=== PATIENT | female | born 1960 | race Caucasian/White ===

== ENCOUNTER 2020-10-25 13:15 | Emergency (ER) | payer OTHER, SELFPAY ==
[2020-10-25 13:26] VITALS: BP 131/87; PULSE 76; RESP 18; O2SAT 96; BMI 30.1
--- NOTE | 2020-10-25 14:13 | CT_ITS ---
WS: [id number] CT ABDOMEN AND PELVIS WITH CONTRAST HISTORY: per request of PCP, recent bariatric surgery TECHNIQUE: Imaging performed of the abdomen and pelvis with IV contrast. Single phase imaging of the abdomen. Coronal and sagittal reformats are submitted. All CT scans at [facility] use at [address] one of these dose optimization techniques: automated exposure control; mA and/or kV adjustment per patient size (includes targeted exams where dose is matched to clinical indication); or iterative re construction. IV CONTRAST: Omnipaque 300; 95 mL IV. Oral contrast: No DLP: 1486.94 mGy.cm COMPARISON: None available. Lower thorax: Lung bases are clear. Heart is normal size. No hiatal hernia. Liver/biliary system: Normal size liver. There is mild bile duct dilatation which is probably physiol ogic. Common bile duct at pancreatic head is normal. Lobulated low-attenuation mass in the anterior l iver measures 3.0 x 1.3 cm and probably represents a cluster of cysts. This is an additional low atte nuation along the posterior diaphragmatic surface. Portal vein is patent and normal. Gallbladder: Status post cholecystectomy. Pancreas: Atrophied pancreas. Spleen: Normal size spleen. No mass or infarct. Adrenal glands: Normal. Right kidney: Normal. Left kidney: Normal. Aorta: Mild atherosclerosis with no aneurysm. Lymphadenopathy: None. Free fluid: None. GI tract: Postsurgical changes from gastric sleeve are evident. There is some very mild mucosal thick ening involving the proximal small bowel. No obstruction or ascites. There is an additional single sanchez rgical clip very close to the proximal duodenum where there is also wall thickening. Abdominal wall: Unremarkable abdominal wall. No hernia. Pelvis: No free fluid or adenopathy within the pelvis. Bones: Degenerative disc disease at L5-S1. CT/CT abdomen pelvis w con* [id number] IMPRESSION: 1. Postsurgical changes within the stomach probably related to gastric sleeve. There is adjacent wall thickening involving the stomach and proximal duodenum. Most significant wall thickening in the duodenum. No free fluid or free air is identified. 2. No ascites. 3. Prior cholecystectomy. 4. Hepatic cysts and mild bile duct dilatation which may be physiologic.
[2020-10-25 14:19] VITALS: BP 146/87; PULSE 70; RESP 18; O2SAT 98
--- NOTE | 2020-10-25 14:23 | ED_ITS ---
HPI - General Adult General: Chief complaint: Abdominal Pain Stated complaint: UPPER ABDOMINAL PAIN Time Seen by Provider: 10/25/20 13:45 History of Present Illness: HPI narrative: Patient is a 60-year-old female with a history of recent bariatric gastric bypass presents the emergency room for evaluation of upper abdominal pain. Patient says that the last 2 weeks she has had dull midepigastric pain. Pain is not worse with p.o. intake. Patient went to see her primary care provider was told to go to the emergency room for evaluation of of persistent pain and specifically for a CT evaluation. Patient had her bariatric surgery in [place]. Since then, patient has not denied any fever/chills, problem with p.o. intake, nausea/vomiting, or other complaints. Patient denies any complaints at this time. Patient reports intermittent liquid stool since her surgery. Denies n/v/f/c/cp/sob/melena or hematocheiza. Onset:2 weeks ago Duration:2 weeks Location:home Severity:moderate Review of Systems Narrative: Constitutional: No fever, no chills. HEENT: No vision changes CV: No chest pain, no palpitations PULM: no cough, no dyspnea. GI: +upper abdominal pain, -N/-V/+D. : No dysuria MSKEL: No muscle pain SKIN: No new rashes, no lesions. NEURO: No headache, no focal weakness. HEME: No visible bruises PSYCH: Normal mood [facility] Female Reproductive History: Date of last menstrual period: 05/17/20 Physical Exam Narrative: EXAM NARRATIVE: Head: Atraumatic Eyes: PERRL, conjunctiva without injection ENT: Mucous membrane moist NECK: Supple, ROM intact LUNGS: LCTAB, no crackles/rhonchi CV: RRR ABDOMEN: Soft, + midepigastric abdominal tenderness to palpation, NO guarding rebound, guarding, rigidity. No CVA tenderness to percussion. Neg Ornelas/Neg McBurney's point tenderness, no suprabupic tenderness to palpation. EXTREMITY: Normal ROM SKIN: No rash or erythema NEURO: Awake and alert, no focal motor deficits PSYCH: Normal mood and affect Course Vital Signs: Vital signs: Vital Signs Pulse Rate 63 10/25/20 16:18 Respiratory Rate 18 10/25/20 15:10 Blood Pressure 127/100 10/25/20 16:18 Pulse Oximetry 100 10/25/20 16:18 MDM - General Adult MDM Narrative: Medical decision making narrative: 60-year-old female who presents the emergency room for evaluation of midepigastric jakub pain s/p bariatric surgery 4 weeks ago. On exam, patient is hemodynamically stable with mild tenderness palpation in the midepigastric area. No guarding or rebound tenderness We will obtain basic blood work and CT evaluation per request of PCP. Lab workup wnl. afebrile emergency room. CT showed mild duodenal thickening consistent with postoperative changes. I have discussed the findings with patient and printed her out a copy of the report for her to share with her PCP. Given onset symptoms x 2 weeks, no leukocytosis, and minimal pain -- patient most likely does not have anything surgical or infectious at this time. It is unclear why patient has midepigastic pain. No suspicion for ACS. Patient received a GI cocktail with symptomatic improvements. No suspicion for pancreatitis or biliary pathologies at this time. UA showed many bacteria but patient has no urinary symptoms, will not treat as UTI. Rx: Pepcid and maalox PRN abdominal pain. Disposition: Discharge. Patient is given follow-up with primary care provider for further evaluation of her symptoms. Patient is given precautions for any worsening pain, fever/chills, nausea/vomiting, worsening pain, or any new concerning complaints. Lab Data: Labs: Lab Results 10/25/20 10/25/20 10/25/20 Range/Units 14:15 14:15 14:25 WBC 9.2 (4.0-10.0) 10^3/ uL RBC 5.52 H (4.1-5.3) 10^6/u L Hgb 14.6 (11.5-15.3) g/dL Hct 46.2 (37.0-47.0) % MCV 83.7 (81-99) fl MCH 26.4 L (28.0-34.0) pg MCHC 31.6 (30.0-36.0) g/dL RDW 13.3 (12.1-15.1) % Plt Count 253 (130-400) 10^3/c mm MPV 10.7 H (7.4-10.4) fL Neut % (Auto) 68.5 % Lymph % (Auto) 20.5 % [place] % (Auto) 6.4 % Eos % (Auto) 3.6 % Baso % (Auto) 0.7 % Neut # (Auto) 6.26 (1.8-7.7) 10^3/u L Lymph # (Auto) 1.9 (0.8-4.8) 10^3/u L [place] # (Auto) 0.6 (0.2-0.9) 10^3/u L Eos # (Auto) 0.3 (0.0-0.8) 10^3/u L Baso # (Auto) 0.1 (0.0-0.1) 10^3/u L Nucleated RBC % (a uto) 0 % Nucleated RBCs # 0.0 /100WBC Sodium 144 (136-145) mmol/L Potassium 3.9 (3.5-5.1) mmol/L Chloride 105 (98-107) mmol/L Carbon Dioxide 29 (22-29) mmol/L Anion Gap 13.9 (5-19) BUN 8 (8-23) mg/dL Creatinine 0.4 L (0.5-0.9) mg/dL GFR Calculation 162.8 H (90-130) mL/min Glucose 94 (65-115) mg/dL Calculated Osmolal ity 296 H (285-295) mOsm/k g Calcium 9.1 (8.5-10.5) mg/dL Total Bilirubin 0.6 (0.15-1.2) mg/dL AST 20 (0-32) U/L ALT 16 (0-33) U/L Alkaline Phosphata se 82 (35-105) IU/L Total Protein 6.6 (6.6-8.7) g/dL Albumin 4.0 (3.5-5.2) g/dL Globulin 2.6 (1.3-4.6) g/dL Lipase 19 (13-60) U/L Urine Color Naila (Yellow) Urine Appearance Hazy A (CLEAR) Urine pH 5 (5-7) Ur Specific Gravit y 1.025 (1.005-1.030) Urine Protein Trace (Negative) Urine Glucose (UA) Norm (Normal) Urine Ketones 1+ H (Negative) Urine Blood Neg (Negative) Urine Nitrate Negative (Negative) Urine Bilirubin 1+ H (Negative) Urine Urobilinogen 1 H (Negative) mg/dL Ur Leukocyte Shahida ase Trace H (Negative) Urine RBC Not Reportable Urine WBC 5-10 H (0-5) /hpf Ur Squamous Epith Cells 5-10 H (0-5) /hpf Amorphous Sediment Not Reportable Urine Bacteria 3+ H (NONE) /hpf Urine Mucus 1+ /hpf Imaging Data^: Other Imaging: Radiologist's impression: [facility] [place], [place] [address]KC Scan ReportSigned Patient: Glo Yeh #: [id number]: 1Acct#:[id number]/Sex: 60 / FADM Date: 10/25/20Loc: ERRoom/Bed:Attending Dr: Ordering Provider/Ordering MD: Prem Aparicio MD Date of Service: 10/25/20 Procedure(s): CT abdomen pelvis w con* [id number] Accession Number(s): [id number] Report Number: [id number] WS: [id number] CT ABDOMEN AND PELVIS WITH CONTRAST HISTORY: per request of PCP, recent bariatric surgery TECHNIQUE: Imaging performed of the abdomen and pelvis with IV contrast. Single phase imaging of the abdomen. Coronal and sagittal reformats are submitted. All CT scans at [facility] use at least one of these dose optimization techniques: automated exposure control; mA and/or kV adjustment per patient size (includes targeted exams where dose is matched to clinical indication); or iterative reconstruction. IV CONTRAST: Omnipaque 300; 95 mL IV. Oral contrast: No DLP: 1486.94 mGy.cm COMPARISON: None available. Lower thorax: Lung bases are clear. Heart is normal size. No hiatal hernia. Liver/biliary system: Normal size liver. There is mild bile duct dilatation which is probably physiologic. Common bile duct at pancreatic head is normal. Lobulated low-attenuation mass in the anterior liver measures 3.0 x 1.3 cm and probably represents a cluster of cysts. This is an additional low attenuation along the posterior diaphragmatic surface. Portal vein is patent and normal. Gallbladder: Status post cholecystectomy. Pancreas: Atrophied pancreas. Spleen: Normal size spleen. No mass or infarct. Adrenal glands: Normal. Right kidney: Normal. Left kidney: Normal. Aorta: Mild atherosclerosis with no aneurysm. Lymphadenopathy: None. Free fluid: None. GI tract: Postsurgical changes from gastric sleeve are evident. There is some very mild mucosal thickening involving the proximal small bowel. No obstruction or ascites. There is an additional single surgical clip very close to the proximal duodenum where there is also wall thickening. Abdominal wall: Unremarkable abdominal wall. No hernia. Pelvis: No free fluid or adenopathy within the pelvis. Bones: Degenerative disc disease at L5-S1. CT/CT abdomen pelvis w con* [id number] IMPRESSION: 1. Postsurgical changes within the stomach probably related to gastric sleeve. There is adjacent wall thickening involving the stomach and proximal duodenum. Most significant wall thickening in the duodenum. No free fluid or free air is identified. 2. No ascites. 3. Prior cholecystectomy. 4. Hepatic cysts and mild bile duct dilatation which may be physiologic. Dictated By:Carlie Moctezuma DOSigned By:aCrlie Moctezuma DOSigned Date/Time:10/25/20 1527DD/ 20 Discharge Plan Discharge Patient Disposition: Home Clinical Impression: Abdominal pain Condition: Stable Prescriptions: New Pepcid 20 mg tablet 20 mg PO BID PRN (Reason: pain) 42 Days Qty: 84 RF: 0 Maalox Advanced 1,000-60 mg tablet,chewable 1 tab PO BID PRN (Reason: pain) 10 Days Qty: 20 RF: 0 No Action Tylenol Extra Strength 500 mg Tablet 500 mg PO Q4H PRN (Reason: Pain) RF: 0 hydrochlorothiazide 12.5 mg capsule 12.5 mg PO DAILY PRN (Reason: Edema) RF: 0 Bariatric Multivitamins 45 mg iron- 800 mcg-120 mcg Capsule 1 cap PO DAILY RF: 0 Discharge Orders: Discharge ED (Routine); Ordered 10/25/20 Ordered By: Prem Aparicio Referrals: Rosendo Harrison FNP [Primary Care Provider] - Discharge Diet: Advance as tolerated Discharge Activity: Resume usual activity Patient Instructions: Abdominal Pain (ED) Activity Restrictions/Additional Instructions: Please come back to the emergency room if your pain worsens, you have any fever or chills, or any new or concerning complaints. Please continue to follow up with your primary care provider for further evaluation of your symptoms. I have made you an appointment with our GI doctor. Our lining caser will call you should you need it. Coding Level of Care Code ED Circular Knife Cutter Machine for Chg Fwd
[2020-10-25] MEDS: sodium chloride 0.9% 1,000 ML 999 ML IV (14:26)
[2020-10-25] MEDS: lidocaine 2% viscous 15 ML, aluminum-mag hydrox-simethicon 30 ML, sucralfate oral liq 1 GM PO (14:27)
[2020-10-25 14:35] LABS: Basophils # 0.1 10^3/uL (0.0-0.1); Basophils % 0.7 %; Eosinophils # 0.3 10^3/uL (0.0-0.8); Eosinophils % 3.6 %; Hematocrit 46.2 % (37.0-47.0); Hemoglobin 14.6 g/dL (11.5-15.3); Lymphocytes # 1.9 10^3/uL (0.8-4.8); Lymphocytes % 20.5 %; Mean Corpuscular HGB Conc 31.6 g/dL (30.0-36.0); Mean Corpuscular Hemoglobin 26.4 pg (28.0-34.0); Mean Corpuscular Volume 83.7 fl (81-99); Mean Platelet Volume 10.7 fL (7.4-10.4); Monocytes # 0.6 10^3/uL (0.2-0.9); Monocytes % 6.4 %; Neutrophils # 6.26 10^3/uL (1.8-7.7); Neutrophils % 68.5 %; Nucleated Red Blood Cells % 0 %; Platelet Count 253 10^3/cmm (130-400); Red Blood Count 5.52 10^6/uL (4.1-5.3); Red Cell Distribution Width 13.3 % (12.1-15.1); White Blood Count 9.2 10^3/uL (4.0-10.0)
[2020-10-25 14:36] LABS: Charge for UA Resulting for Rev
[2020-10-25 14:54] LABS: Urine Appearance Hazy (CLEAR); Urine Color Amber (Yellow); pH Urine 5 (5-7)
[2020-10-25 14:55] LABS: Add Urine Microscopic? YES; Bilirubin Urine 1+ (Negative); Blood Urine Neg (Negative); Glucose Urine UA Norm (Normal); Ketones Urine 1+ (Negative); Leukocyte Esterase Urine Trace (Negative); Nitrate Urine Negative (Negative); Protein Urine Trace (Negative); Specific Gravity, Urine 1.025 (1.005-1.030); Urobilinogen Urine 1 mg/dL (Negative)
[2020-10-25 14:56] LABS: Add Urine Culture? Yes; Bacteria Urine 3+ /hpf; Mucus Urine 1+ /hpf; Other Sediment, Urine T
[2020-10-25 15:00] LABS: Alanine Aminotransferase 16 U/L (0-33); Alkaline Phosphatase 82 IU/L (35-105); Anion Gap 13.9 (5-19); Aspartate Amino Transferase 20 U/L (0-32); Blood Urea Nitrogen 8 mg/dL (8-23); Calcium 9.1 mg/dL (8.5-10.5); Carbon Dioxide 29 mmol/L (22-29); Chloride 105 mmol/L (98-107); Globulin 2.6 g/dL (1.3-4.6); Glomerular Filtration Rate 162.8 mL/min (90-130); Glucose 94 mg/dL (65-115); Lipase 19 U/L (13-60); Osmolality Calculated 296 mOsm/kg (285-295); Potassium 3.9 mmol/L (3.5-5.1); Sodium 144 mmol/L (136-145); Total Bilirubin 0.6 mg/dL (0.15-1.2); Total Protein 6.6 g/dL (6.6-8.7)
[2020-10-25 15:10] VITALS: BP 149/95; PULSE 80; RESP 18; O2SAT 97
[2020-10-25] MEDS: iohexol 300 mg/mL 100 mL Btl IV (15:17)
[2020-10-25 16:18] VITALS: BP 127/100; PULSE 63; O2SAT 100
--- NOTE | 2020-11-01 13:21 | DCPLANNER ---
used car manager had message to schedule a follow up appointment for patient with a GI physician. used car manager called patient, to confirm if she wanted to see someone in [place]. Patient stated that she has seen her primary care physician, and her primary care is taking care of the referral to a GI Specialist in [place].
== END 2020-10-25 16:20 | disposition home or self-care (01) ==
PROVIDERS: Emergency Provider Emergency Medicine; PCP Nurse Practitioner Family
DX: R10.9 Unspecified abdominal pain (principal)
CPT/HCPCS: 74177; 80053; 81001; 81003; 83690; 85025; 87086; 96360; 99283; J7030; Q9967

== ENCOUNTER 2021-08-31 13:32 | Emergency (ER) | payer OTHER, SELFPAY ==
[2021-08-31 13:34] VITALS: BP 99/70; PULSE 74; RESP 16; TEMP 37.2; O2SAT 97
--- NOTE | 2021-08-31 15:01 | W.ED.COVID ---
HPI - COVID General: Chief Complaint: COVID symptoms Stated Complaint: headache, fever, chills, body aches Time Seen by Provider: 08/31/21 15:01 History of Present Illness: 61-year-old female comes in today with complaints of sore throat, fever, headache and body aches starting last night. Patient reports feeling better since taking some Tylenol today. Patient appears nontoxic. Patient reports only medication she takes routinely is for her stomach ulcer. Patient denies any chronic medical problems. COVID 19 common symptoms: positive fever(s), body aches and throat pain; negative dyspnea, nausea or vomiting COVID 19 other sytmptoms: negative chest pain COVID Results: SARS-CoV-2 Antigen (Rapid) Positive (Negative) H 08/31/21 15:13 08/31/21 Review of Systems General: Reports: 10 or more systems reviewed and unremarkable except in HPI and below Const: Reports: fever(s) and body aches ENMT: Reports: throat pain Card: Denies: chest pain Resp: Denies: dyspnea GI: Denies: nausea or vomiting Skin/Breast: Denies: rash [facility] Female Reproductive History: Date of last menstrual period: 05/17/20 Physical Exam Const: COMMON NORMALS: alert HENMT: COMMON NORMALS: TM's normal bilaterally HEAD & SCALP: normal to inspection NOSE: No nasal discharge present TYMPANIC MEMBRANE: TM's normal bilaterally MOUTH: Normal oral and palatal mucosa present THROAT: posterior oropharynx normal Neck/C-Spine: COMMON NORMALS: full ROM and no lymphadenopathy Resp: COMMON NORMALS: normal respiratory effort Cardio: COMMON NORMALS: regular rate and regular rhythm RATE: regular rate RHYTHM: regular rhythm GI: COMMON NORMALS: Soft to palpation and non-tender PALPATION: Yes Soft to palpation Extremity: COMMON NORMALS: normal to inspection Neuro: SENSORIUM/ORIENTATION: Yes alert Skin: COMMON NORMALS: no rashes or lesions noted GENERAL SKIN EXAM: no rashes or lesions noted Course Vital Signs: Vital signs: Vital Signs Temperature 99.0 F 08/31/21 13:34 Pulse Rate 74 08/31/21 13:34 Respiratory Rate 16 08/31/21 13:34 Blood Pressure 99/70 08/31/21 13:34 Pulse Oximetry 97 08/31/21 13:34 MDM - COVID Medical Decision Making 61-year-old female comes in today for complaints of sore throat, fever, and body aches. On exam posterior pharynx slightly erythematous. Lungs are clear to auscultation. Vital signs are normal. Differential diagnosis includes viral pharyngitis, strep pharyngitis, COVID-19. Strep test was negative. COVID-19 test was positive. Patient was given a dose of dexamethasone for her pharyngitis. Patient was encouraged to drink plenty of fluids use Tylenol and ibuprofen for pain and fever. Follow-up with primary care as needed. Return to ER for chest pain or shortness of breath. Lab Data Laboratory Results SARS-CoV-2 Ag (Rapid) Positive (Negative) H 08/31/21 15:13 Group A Strep Rapid Negative (Negative) 08/31/21 15:13 SARS-CoV-2 Antigen (Rapid) Positive (Negative) H 08/31/21 15:13 08/31/21 Discharge Plan Discharge Patient Disposition: Home Clinical Impression: Viral pharyngitis, COVID-19 Condition: Stable Prescriptions: No Action Tylenol Extra Strength 500 mg Tablet 500 mg PO Q4H PRN (Reason: Pain) 0RF hydrochlorothiazide 12.5 mg capsule 12.5 mg PO DAILY PRN (Reason: Edema) 0RF Bariatric Multivitamins 45 mg iron- 800 mcg-120 mcg Capsule 1 cap PO DAILY 0RF Discharge Orders: Discharge ED (Routine); Ordered 08/31/21 Ordered By: Chico Bazan Discharge Diet: Usual diet Discharge Activity: Increase activity as tolerated Patient Instructions: Pharyngitis (ED) Activity Restrictions/Additional Instructions: Drink plenty of fluids. Use acetaminophen or ibuprofen for pain and fever. We have cultured your throat also if it does come back growing a bacteria that can use antibiotics we will contact you. Follow-up with primary care in 3 to 5 days for recheck. At this time it appears to be a viral illness and should resolve over the next 3 to 5 days. Return to ER for new concerns. Stand Alone Forms: Work/School Release Coding Level of Care Code ED Executive Administrative Assistant for Kulwant Fwd Exam Comprehensive
[2021-08-31 15:39] LABS: Rapid Strep A Test Negative (Negative)
[2021-08-31 15:50] LABS: SARS Covid-2 Antigen Positive (Negative)
== END 2021-08-31 17:32 | disposition home or self-care (01) ==
PROVIDERS: Emergency Provider Nurse Practitioner Family
DX: U07.1 COVID-19 (principal); J02.9 Acute pharyngitis, unspecified
CPT/HCPCS: 87081; 87426; 87880; 99283

== ENCOUNTER 2023-08-27 11:48 | Emergency (ER) | payer OTHER, SELFPAY ==
[2023-08-27 12:30] VITALS: BP 123/79; PULSE 90; RESP 22; TEMP 37.3; O2SAT 98; BMI 21.4
--- NOTE | 2023-08-27 13:15 | XRR_ITS ---
PROCEDURE INFORMATION: Exam: XR Chest Exam date and time: 08/27/2023 1:34 PM Age: 63 years old Clinical indication: Fever; Additional info: Dyspnea/cough, weakness and fever TECHNIQUE: Imaging protocol: Radiologic exam of the chest. Views: 1 view. COMPARISON: CT abdomen pelvis w con* [id number] 10/25/2020 3:13 PM FINDINGS: Lungs: Unremarkable. No consolidation. Pleural spaces: Unremarkable. No pleural effusion. No pneumothorax. Heart/Mediastinum: Unremarkable. No cardiomegaly. Bones/joints: Unremarkable. XR/XR chest 1V portable [id number] IMPRESSION: No acute findings.
--- NOTE | 2023-08-27 13:15 | ECG_ITS ---
[facility] Test Date: 2023-08-27 Pat Name: Glo Yeh Department: Room: Gender: Female Assistant Business Manager: : 1960 Requested By: Phan Hinton Order Number: [id number] Kisha MD: Michele Hayes M.D. Measurements Intervals [place] Rate: 80 P: 69 WA: 155 QRS: 49 QRSD: 79 T: 65 QT: 336 QTc: 390 Interpretive Statements SINUS RHYTHM POSSIBLE RIGHT VENTRICULAR CONDUCTION DELAY [RSR (QR) IN V1/V2] No previous ECG available for comparison Electronically Signed On 08-27-2023 20:19:20 CDT by Michele Hayes M.D. [id number]
[2023-08-27 13:38] LABS: Urine Appearance Cloudy (CLEAR); Urine Color Yellow (Yellow)
[2023-08-27 13:39] LABS: Add Urine Microscopic? YES; Bilirubin Urine Neg (Negative); Blood Urine 2+ (Negative); Glucose Urine UA Norm (Normal); Ketones Urine Negative (Negative); Leukocyte Esterase Urine 2+ (Negative); Nitrate Urine Positive (Negative); Protein Urine 1+ (Negative); Specific Gravity, Urine 1.015 (1.005-1.030); Urobilinogen Urine Neg (Negative); pH Urine 5 (5-7)
[2023-08-27 13:40] LABS: Bacteria Urine 3+ /hpf; WBC Urine >100 /hpf (0-5)
[2023-08-27 13:41] LABS: Add Urine Culture? Yes; Mucus Urine TRACE /hpf
[2023-08-27 13:43] LABS: Basophils # 0.1 10^3/uL (0.0-0.1); Basophils % 0.5 %; Eosinophils # 0.1 10^3/uL (0.0-0.8); Eosinophils % 0.9 %; Hematocrit 44.3 % (36-47); Lymphocytes # 0.8 10^3/uL (0.8-4.8); Lymphocytes % 7.2 %; Mean Corpuscular HGB Conc 32.7 g/dL (30-55); Mean Corpuscular Volume 85.5 fl (85-98); Mean Platelet Volume 10.8 fL (7.4-10.4); Monocytes % 9.6 %; Neutrophils # 8.52 10^3/uL (1.8-7.7); Neutrophils % 81.4 %; Nucleated Red Blood Cells % 0 %; Platelet Count 199 10^3/cmm (157-399); Red Blood Count 5.18 10^6/uL (3.85-5.65); Red Cell Distribution Width 12.4 % (12.1-15.1); White Blood Count 10.45 10^3/uL (3.29-11.43)
[2023-08-27 13:59] LABS: Lactic Sepsis W/Reflex 1.8 mmol/L (0.5-2.2)
[2023-08-27 14:00] LABS: Alanine Aminotransferase 14 U/L (0-33); Albumin Level 3.6 g/dL (3.5-5.2); Alkaline Phosphatase 113 U/L (35-105); Anion Gap 15.8 (5-19); Aspartate Amino Transferase 17 U/L (0-32); Blood Urea Nitrogen 14 mg/dL (8-23); Calcium 8.5 mg/dL (8.5-10.5); Carbon Dioxide 25 mmol/L (22-29); Chloride 100 mmol/L (98-107); Creatinine Clr Calc Pharmacy 67.8489; Globulin 3.2 g/dL (1.3-4.6); Glomerular Filtration Rate 72.4 mL/min (90-130); Glucose 160 mg/dL (65-115); Lipase 14 U/L (13-60); Osmolality Calculated 288 mOsm/kg (285-295); Potassium 3.8 mmol/L (3.5-5.1); Sodium 137 mmol/L (136-145); Total Bilirubin 0.9 mg/dL (0.15-1.2); Total Protein 6.8 g/dL (6.6-8.7)
[2023-08-27] MEDS: cefTRIAXone 1,000 MG in sodium chloride 0.9% (plus) 50 ML 100 MG IV (14:00)
[2023-08-27] MEDS: sodium chloride 0.9% 1,000 ML 999 ML IV (14:00)
[2023-08-27 14:03] VITALS: BP 95/65
--- NOTE | 2023-08-27 14:05 | ED_ITS ---
HPI - Fever 2 General: Chief Complaint: Fever Stated Complaint: fever, chills Time Seen by Provider: 08/27/23 13:15 Source: patient Mode of arrival: ambulatory History of Present Illness: 63-year-old female presents emergency ro om complaining of fever for the last 5 days dysuria urgency and frequency some mild flank pain low-grade fever no vomiting no diarrhea has been very nauseous. No chest pain no shortness of breath MD elicited complaint: fever and weakness Onset (ago): day(s) (5) Exacerbating factors: nothing Relieving factors: nothing Associated symptoms: Reports flank pain, chills and dysuria; Deny abdominal pain, chest pain, confusion, cough, diarrhea, extremity pain, headache(s), myalgias, nasal congestion, nausea, night sweats, rash, rhinorrhea, short of breath, sinus pain, stiffness, sore throat, vomiting, weight loss or other Review of Systems 2 Const: Reports: chills; Denies: night sweats ENMT: Denies: nasal congestion or sinus pain Card: Denies: chest pain Resp: Denies: dyspnea GI: Denies: abdominal pain, nausea, vomiting or diarrhea : Reports: flank pain, dysuria, urinary frequency and urinary urgency Musc: Reports: back pain; Denies: extremity pain Skin/Breast: Denies: rash Neuro: Denies: headache(s) or confusion Physical Exam 2 Const: GENERAL APPEARANCE: cooperative and comfortable O RIENTATION/CONSCIOUSNESS: Yes awake, Yes oriented to person, Yes oriented to place and Yes oriented to time HENMT: COMMON NORMALS: normocephalic, atraumatic and hearing grossly normal bilaterally HEAD & SCALP: normocephalic and atraumatic Resp: COMMON NORMALS: normal respiratory effort, No retractions, No use of accessory muscles and clear to auscultation bilaterally AUSCULTATION: clear to auscultation bilaterally Cardio: COMMON NORMALS: regular rate, regular rhythm and No murmurs present (Cardio) RATE: regular rate RHYTHM: regular rhythm GI: COMMON NORMALS: Soft to palpation and No hepatosplenomegaly present A USCULTATION: Yes normoactive bowel sounds PALPATION: Yes Soft to palpation, No Tenderness to palpation present (GI), No Guarding due to palpation present (GI) and Yes No hepatosplenomegaly present : BLADDER/KIDNEY EXAM: Yes CVA tenderness Back/Pelvis: GENERAL BACK: Yes CVA tenderness CVA tenderness: left Extremity: COMMON NORMALS: normal to inspection, capillary refill normal, no clubbing, cyanosis or edema, no calf tenderness and no pedal edema Neuro: SENSORIUM/ORIENTATION: Yes oriented to person, Yes oriented to place and Yes oriented to time Skin: COMMON NORMALS: no rashes or lesions noted GENERAL SKIN EXAM: no rashes or lesions noted Course 2 Vital Signs: Vital signs: Vital Signs Temperature 99.2 F 08/27/23 12:30 Pulse Rate 90 08/27/23 12:30 Respiratory Rate 22 H 08/27/23 12:30 Blood Pressure 95/65 08/27/23 14:03 Pulse Oximetry 98 08/27/23 12:30 Oxygen Delivery Me thod Room Air 08/27/23 12:30 MDM - Fever Medical Decision Making No leukocytosis lactate normal. Patient does have cystitis with mild left-sided flank pain. Given dose of ceftriaxone here discharged home with ciprofloxacin and promethazine to use as needed follow-up as needed Lab Data 08/27/23 13:30 08/27/23 13:30 Radiology Impressions Chest X-Ray 08/27/23 13:15 IMPRESSION: No acute findings. Laboratory Results WBC 10.45 10^3/uL (3.29-11.43) 08/27/23 13:30 RBC 5.18 10^6/uL (3.85-5.65) 08/27/23 13:30 Hgb 14.50 g/dL (11.27-16.99) 08/27/23 13:30 Hct 44.3 % (36-47) 08/27/23 13:30 MCV 85.5 fl (85-98) 08/27/23 13:30 MCH 28.0 pg (27-33) 08/27/23 13:30 MCHC 32.7 g/dL (30-55) 08/27/23 13:30 RDW 12.4 % (12.1-15.1) 08/27/23 13:30 Plt Count 199 10^3/cmm (157-399) 08/27/23 13:30 MPV 10.8 fL (7.4-10.4) H 08/27/23 13:30 Neut % (Auto) 81.4 % 08/27/23 13:30 Lymph % (Auto) 7.2 % 08/27/23 13:30 [place] % (Auto) 9.6 % 08/27/23 13:30 Eos % (Auto) 0.9 % 08/27/23 13:30 Baso % (Auto) 0.5 % 08/27/23 13:30 Neut # (Auto) 8.52 10^3/uL (1.8-7.7) H 08/27/23 13:30 Lymph # (Auto) 0.8 10^3/uL (0.8-4.8) 08/27/23 13:30 [place] # (Auto) 1.0 10^3/uL (0.2-0.9) H 08/27/23 13:30 Eos # (Auto) 0.1 10^3/uL (0.0-0.8) 08/27/23 13:30 Baso # (Auto) 0.1 10^3/uL (0.0-0.1) 08/27/23 13:30 Nucleated RBC % (auto) 0 % 08/27/23 13:30 Nucleated RBCs # 0.0 /100WBC 08/27/23 13:30 Sodium 137 mmol/L (136-145) 08/27/23 13:30 Potassium 3.8 mmol/L (3.5-5.1) 08/27/23 13:30 Chloride 100 mmol/L (98-107) 08/27/23 13:30 Carbon Dioxide 25 mmol/L (22-29) 08/27/23 13:30 Anion Gap 15.8 (5-19) 08/27/23 13:30 BUN 14 mg/dL (8-23) 08/27/23 13:30 Creatinine 0.8 mg/dL (0.5-0.9) 08/27/23 13:30 GFR Calculation 72.4 mL/min (90-130) L 08/27/23 13:30 Glucose 160 mg/dL (65-115) H 08/27/23 13:30 Calculated Osmolality 288 mOsm/kg (285-295) 08/27/23 13:30 Lactic Acid 1.8 mmol/L (0.5-2.2) 08/27/23 13:30 Calcium 8.5 mg/dL (8.5-10.5) 08/27/23 13:30 Total Bilirubin 0.9 mg/dL (0.15-1.2) 08/27/23 13:30 AST 17 U/L (0-32) 08/27/23 13:30 ALT 14 U/L (0-33) 08/27/23 13:30 Alkaline Phosphatase 113 U/L (35-105) H 08/27/23 13:30 Total Protein 6.8 g/dL (6.6-8.7) 08/27/23 13:30 Albumin 3.6 g/dL (3.5-5.2) 08/27/23 13:30 Globulin 3.2 g/dL (1.3-4.6) 08/27/23 13:30 Lipase 14 U/L (13-60) 08/27/23 13:30 Urine Color Yellow (Yellow) 08/27/23 12:48 Urine Appearance Cloudy (CLEAR) A 08/27/23 12:48 Urine pH 5 (5-7) 08/27/23 12:48 Ur Specific [place] 1.015 (1.005-1.030) 08/27/23 12:48 Urine Protein 1+ (Negative) H 08/27/23 12:48 Urine Glucose (UA) Norm (Normal) 08/27/23 12:48 Urine Ketones Negative (Negative) 08/27/23 12:48 Urine Blood 2+ (Negative) H 08/27/23 12:48 Urine Nitrate Positive (Negative) A 08/27/23 12:48 Urine Bilirubin Neg (Negative) 08/27/23 12:48 Urine Urobilinogen Neg mg/dL (Negative) 08/27/23 12:48 Ur Leukocyte Esterase 2+ (Negative) H 08/27/23 12:48 Urine RBC 5-10 /hpf (0-2) H 08/27/23 12:48 Urine WBC >100 /hpf (0-5) H 08/27/23 12:48 Ur Squamous Epith Cells 5-10 /hpf (0-5) H 08/27/23 12:48 Amorphous Sediment Not Reportable 08/27/23 12:48 Urine Bacteria 3+ /hpf (NONE) H 08/27/23 12:48 Urine Mucus Trace /hpf 08/27/23 12:48 All radiology interpretation(s) finalized by discharge Discharge Plan Discharge Patient Disposition: Home Clinical Impression: Pyelonephritis Condition: Stable Prescriptions: New ciprofloxacin HCl 500 mg tablet 500 mg PO BID Qty: 14 0RF promethazine 25 mg tablet 25 mg PO Q6H PRN (Reason: nausea and vomiting) Qty: 20 0RF No Action Tylenol Extra Strength 500 mg Tablet 500 mg PO Q4H PRN (Reason: Pain) hydrochlorothiazide 12.5 mg capsule 12.5 mg PO DAILY PRN (Reason: Edema) Bariatric Multivitamins 45 mg iron- 800 mcg-120 mcg Capsule 1 cap PO DAILY Discharge Orders: Discharge ED (Routine); Ordered 08/27/23 Ordered By: Phan Amador Discharge Diet: Usual diet Discharge Activity: Increase activity as tolerated Patient Instructions: Opioid Safety, Pain Management, Pyelonephritis Activity Restrictions/Additional Instructions: Thank you for choosing [facility] for your healthcare needs today. It is very important that you follow up as instructed or that you return to the Emergency Department should you have concerns or if your condition changes or worsens in any way. Coding Level of Care Code ED Blindstitch Machine Operator for Kulwant Thibodeaux
== END 2023-08-27 14:48 | disposition home or self-care (01) ==
PROVIDERS: Emergency Provider Family Medicine
DX: N12 Tubulo-interstitial nephritis, not specified as acute or chronic (principal); Z79.899 Other long term (current) drug therapy
CPT/HCPCS: 36415; 71045; 80053; 81001; 83605; 83690; 85025; 87040; 87077; 87086; 87150; 87186; 87205; 93005; 96374; 99285; J0696; J7030